=== PATIENT | female | born 1955 | race Caucasian/White ===

== ENCOUNTER 2021-10-15 07:01 | Inpatient (IN) ==
[2021-10-11 19:50] LABS: Appearance,Urine CLEAR (Clear); Bilirubin,Urine Negative (Negative); Color,Urine STRAW; Culture Indicated,Urine No; Glucose,Urine (UA) Negative (Negative); Ketones,Urine Negative (Negative); Leukocyte Esterase,Urine Negative /uL (Negative); Nitrate,Urine Negative (Negative); Protein,Urine Negative (Negative); Specific Gravity,Urine 1.008 (1.000-1.035); Urine Blood Negative (Negative); Urobilinogen,Urine Negative
[2021-10-11 21:56] LABS: ALT/SGPT 10 U/L (<40); AST/SGOT 31 U/L (<32); Albumin 4.2 gm/dL (3.2-5.2); Albumin/Globulin Ratio 1.2 (1.0-2.3); Alkaline Phosphatase 119 U/L (39-117); Bilirubin,Total 0.4 mg/dL (0.1-1.0); Blood Urea Nitrogen 7 mg/dL (8-23); Calcium 9.3 mg/dL (8.6-10.4); Carbon Dioxide 24 mmol/L (22-30); Chloride 101 mmol/L (96-108); Globulin 3.6 gm/dL (2.2-3.7); Glomerular Filtration Rate 102; Glucose 88 mg/dL (70-105)
[2021-10-11 22:08] LABS: Basophils # (Auto) 0.06 K/mcL (0.00-0.30); Basophils % (Auto) 1.1 % (0.0-2.0); Eosinophils % (Auto) 7.2 % (0.0-7.0); Hematocrit 31.4 % (34.1-44.9); Hemoglobin 9.6 g/dL (11.2-15.7); Lymphocytes # (Auto) 1.69 K/mcL (1.50-4.80); Lymphocytes % (Auto) 30.2 % (15.5-49.0); Mean Cell Volume 81.3 fL (80.0-100.0); Mean Corpuscular HGB Conc 30.6 g/dL (31.0-36.0); Mean Platelet Volume 10.2 fL (7.4-10.4); Monocytes # (Auto) 0.53 K/mcL (0.10-0.90); Monocytes % (Auto) 9.5 % (1.0-12.0); Platelet Count 196 K/mcL (140-440); RBC 3.86 M/mcL (3.59-5.38); Red Cell Distribution Width 17.9 % (11.5-14.5); WBC 5.6 K/mcL (4.5-11.0)
[2021-10-11 22:28] LABS: Estimated Average Glucose(eAG) 111 mg/dL; Hemoglobin A1C 5.5 % Hgb (4.0-6.0)
[~2021-10-15 07:01] MED LIST: 0.9 % SODIUM CHLORIDE 9 ML, KETOROLAC 30 MG, ROPIVACAINE HCL/PF 49.5 ML, EPINEPHrine 0.... IJ SCH; CELECOXIB 200 MG CAPSULE PO SCH; PREGABALIN 75 MG CAPSULE PO SCH; ceFAZolin 2 GM in DEXTROSE 5% IN WATER 50 ML IV SCH; oxyCODONE 10 MG TAB.ER.12H PO SCH
[2021-10-15] MEDS ORDERED: LIDOCAINE HCL/PF 100 MG/5 ML SYRINGE IV ONE (09:30)
[2021-10-15] MEDS ORDERED: VASOPRESSIN 20 UNIT/ML VIAL ONE (09:30)
[2021-10-15] MEDS ORDERED: TRANEXAMIC ACID 1,000 MG/10 ML VIAL ONE (09:30)
[2021-10-15] MEDS ORDERED: PROPOFOL 200 MG/20 ML VIAL IV ONE (09:30)
[2021-10-15] MEDS ORDERED: MIDAZOLAM 2 MG/2 ML VIAL ONE (09:30)
[2021-10-15] MEDS ORDERED: ONDANSETRON 4 MG/2 ML VIAL ONE (09:30)
[2021-10-15] MEDS ORDERED: KETAMINE 50 MG/ML Syringe (ANEST) IV ONE (09:30)
[2021-10-15] MEDS ORDERED: DEXAMETHASONE 10 MG/ML VIAL ONE (09:30)
[2021-10-15] MEDS ORDERED: PHENYLephrine 1 MG/10 ML SYRINGE (ANEST) ONE (09:30)
[2021-10-15] MEDS ORDERED: ePHEDrine 50 MG/5 ML SYRINGE (ANEST) IV ONE (09:30)
[2021-10-15] MEDS ORDERED: ROPIVACAINE HCL/PF 20 ML VIAL IJ ONE (09:30)
[2021-10-15] MEDS ORDERED: GLYCOPYRROLATE 0.2 MG/ML VIAL IV ONE (09:30)
--- NOTE | 2021-10-15 09:37 | EKG ---
[facility] Test Date: 2021-10-11 Pat Name: Terrie Mcdaniel Department: CLAUDE Room: Gender: Female Residential Sales Rep: : [id number] Requested By: Jules Cruz Order Number: [id number] Reading MD: Zev Nash M.D. Measurements Intervals [place] Rate: 73 P: 46 WV: 180 QRS: -17 QRSD: 96 T: 41 QT: 396 QTc: 437 Interpretive Statements SINUS RHYTHM BORDERLINE LEFT AXIS DEVIATION BORDERLINE T ABNORMALITIES, ANTERIOR LEADS Electronically Signed On 10-15-2021 9:35:30 PST by Zev Nash M.D. /[email or web address]/[id number]
--- NOTE | 2021-10-15 11:57 | Brief Operative Note ---
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
[2021-10-15] MEDS ORDERED: MAGNESIUM HYDROXIDE 30 ML ORAL.SUSP PO PRN (11:58)
[2021-10-15] MEDS ORDERED: TRANEXAMIC ACID 1,000 MG/10 ML VIAL IV ONE (11:58)
[2021-10-15] MEDS ORDERED: HYDROmorphone 1 MG/ML SYRINGE IV PRN (11:58)
[2021-10-15] MEDS ORDERED: BENZOCAINE/MENTHOL 1 LOZENGE PO PRN ×2 (11:58→12:34)
[2021-10-15] MEDS ORDERED: BISACODYL 10 MG SUPP.RECT PR PRN (11:58)
[2021-10-15] MEDS ORDERED: FLEETS ADULT ENEMA PR PRN (11:58)
[2021-10-15] MEDS ORDERED: DEXTROSE 31 GM ORAL.SUSP PO PRN (11:58)
[2021-10-15] MEDS ORDERED: ONDANSETRON 4 MG/2 ML VIAL IV PRN ×2 (11:58→12:34)
[2021-10-15] MEDS ORDERED: DEXTROSE 50% 50 ML VIAL IV PRN (11:58)
[2021-10-15] MEDS ORDERED: HYDROmorphone 0.5 MG/0.5 ML SYRINGE IV PRN (12:34)
[2021-10-15] MEDS ORDERED: IPRATROPIUM/ALBUTEROL 3 ML AMPUL.NEB NEB PRN (12:34)
[2021-10-15] MEDS ORDERED: FLUMAZENIL 0.1 MG/ML ML IV PRN (12:34)
[2021-10-15] MEDS ORDERED: ACETAMINOPHEN 1,000 MG/100 ML BAG IV ONE (12:34)
[2021-10-15] MEDS ORDERED: fentaNYL 100 MCG/2 ML VIAL IV PRN (12:34)
[2021-10-15] MEDS ORDERED: LABETALOL 5 MG/ML ML IV PRN (12:34)
[2021-10-15] MEDS ORDERED: METHOCARBAMOL 1,000 MG/10 ML VIAL IV PRN (12:34)
[2021-10-15] MEDS ORDERED: LACTATED RINGERS 250 ML IV PRN (12:34)
[2021-10-15] MEDS ORDERED: NALOXONE HCL 0.4 MG/ML VIAL IV PRN (12:34)
[2021-10-15] MEDS ORDERED: METOPROLOL TARTRATE 5 MG/5 ML VIAL IV PRN (12:34)
[2021-10-15] MEDS ORDERED: LACTATED RINGERS 1,000 ML IV SCH (12:45)
--- NOTE | 2021-10-15 12:57 | Operative Note ---
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 PROCEDURE PERFORMED: 1. Revision total knee arthroplasty with placement of a Maddy Triathlon total stabilized size 2 femoral component with a 100 x 13 mm stem with a size 3 tibial baseplate and an 11 x 100 stem; a 13 total stabilized insert, and a 31 mm patellar button. 2. Removal of previous cement articulating spacer. SURGEON: Willy Galindo M.D. SOLUTION SPEC: Jeronimo Howard PA-C. The PA's assistance was required for the safe and efficient completion of the entire case. This provider's expertise and technical skill were required throughout the case. The PA assisted with preoperative coordination, intraoperative retraction, wound closure, dressing and splint application, as well as postoperative documentation and care coordination. ANESTHESIA: Spinal plus general plus regional block. DRAINS: None. SPECIMENS: Culture and sensitivity x2, as well as removed cement spacer components. ESTIMATED BLOOD LOSS: 100 mL. COMPLICATIONS: None. POSTOPERATIVE CONDITION: Stable. INDICATIONS FOR SURGERY: This is a 66-year-old female who had undergone a right total knee arthroplasty. 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 She underwent 6 weeks of IV antibiotics. Fluid aspiration and culture was done after completion of the antibiotics, which showed no bacteria, so she was ready for reimplantation. FINDINGS AT SURGERY: There was no evidence of active infection. Post implantation showed satisfactory range of motion, stability, and patellar tracking. PROCEDURE IN DETAIL: The patient had been seen preoperatively. Informed consent had been obtained after discussion of risks and benefits of surgery. Risks including, but not limited to, bleeding; infection, possibly requiring a repeat of this latest process, possibly ultimately ending in an above-knee amputation; injury to nerves, blood vessels, other surrounding structures; anesthetic risks; stiffness; swelling; pain; possibility of needing further surgeries. She understood and wished to proceed. The correct operative site was marked in preoperative holding, and she received spinal anesthesia. She was then taken to the operating room and LMA general was given. The right lower extremity was then carefully prepped and draped in normal sterile fashion. A timeout was performed verifying patient name, operative site, and plan. Ioban drape was used and then a midline incision was made through her previous incision through skin and subcutaneous tissue. Hemostasis was obtained with Bovie cautery. We then developed full-thickness flaps sharply with the scalpel. She had quite significant scarring. We then did a medial parapatellar arthrotomy with a scalpel, and there was very minimal joint fluid. We went ahead and cultured this x2 and sent it off. I continued with anterior medial exposure of the proximal tibia and then removed some scar tissue from behind the patellar tendon to aid our exposure. We then used a flexible osteotome to work the edges of the femoral component until this was loose and then a fishmouth was used to disimpact. We then exposed the proximal tibia and similarly used the osteotome around the polyethylene, tibial component, and then used a fishmouth to disimpact. We then spent quite a bit of time carefully removing cement with osteotome and curette until we had removed cement. We then started on the tibial side. We did irrigate IrriSept after our initial exposure down onto the extensor mechanism and then once we entered the joint. We started reaming down the canal to a size 11 and then based off her prior size of a 3, we did require some offset to fit the tibia appropriately. We then did our boss reaming and the keel punch. We then placed our tibial trial with the 100 stem. We then used the femoral trial and ended up needing a distal femoral augment on the lateral side, so we did a freshening cut on that side. Prior to placement of this trial, we did ream up the femoral canal to a size 13, and then with this stem trial on the component, we determined that we wanted 2 mm of posterior offset. We trialed this with an 11. This was not quite enough tension, so we went up to a size 13 insert trial, and this seemed to give good stability with full extension. We then turned our attention to the patella. We went ahead and made a freshening cut off of the patella and then used a 31 sizer and medialized maximally and drilled new holes. We then placed the patellar trial. A limited lateral facetectomy was performed. We then checked our tracking. Due to the scarring around the patella, we did have some patellar tilt, so I went ahead and did a partial lateral release, starting from the tibia and going up to just the superior margin of the patella, about a centimeter lateral to the patella. This did seem to allow the patella to lay down better, so we went ahead and removed trial implants. Definitive implants were opened and assembled on the back table. A 50% dilute Betadine solution was used to fill the joint. This was left for 5 minutes. After that, we pulse lavaged copiously with saline, and placed with IrriSept. Once components had been assembled on the back table, we then mixed antibiotic Palacos and pulse lavaged the knee copiously with saline. We cemented the tibia, placing no cement around the stem. I then similarly prepared the femur with pulse lavage, and then cementing the femoral component. A 13 trial insert was placed, and the knee was taken into extension. Excess cement removed and then the patellar button was cemented. While cement hardened, we kept the knee absolutely still in full extension. We injected pain cocktail in the pericapsular and subcutaneous tissues. The joint was filled with IrriSept again. Once cement had fully hardened, we pulse lavaged the IrriSept out, flexed the knee up, and removed the trial insert. I went ahead and opened a 13 definitive insert. Final inspection was done for any loose cement fragments and then IrriSept was irrigated onto the tray. We then impacted the total stabilized insert into position and then impacted the metal support post down the top. The knee was then placed in extension and again we filled the joint with IrriSept. After a minute, we then pulse lavaged copiously with saline. We then flexed the knee to about 45 degrees. Two [id number] #2 FiberWire stitches were placed at the superior apex of the patella and then one [id number] at the inferior. We then used Stratafix suture running from the quad tendon down and around the patella, and then a second one was run the patellar tendon up and around the patella. At this point, tourniquet was released at 2 hours. We irrigated a final IrriSept, after a minute final pulse lavage, and then 2-0 Monocryl was used for subcutaneous, silvestre for skin. Xeroform and sterile dressing were applied without any adhesives. The patient was then awakened, extubated, and transferred to recovery in stable condition. JAGJIT:marcel Job ID: [id number] Doc ID: [id number] Willy Galindo MD
[2021-10-15] MEDS: 0.9 % SODIUM CHLORIDE 1,000 ML IV SCH ×2 (13:53→22:27)
--- NOTE | 2021-10-15 13:57 | XRay Report ---
CLINICAL INFORMATION: Post-op total knee. COMPARISON: None. FINDINGS: Long stem knee prostheses is anatomically aligned. No osseous abnormalities. Periarticular soft tissue swelling seen as expected. IMPRESSION: Knee prostheses in anatomic alignment Interpreted and Authenticated by: Zev Melendez 10/15/21
[2021-10-15] MEDS: 0.9 % SODIUM CHLORIDE 10 ML SYRINGE IV SCH ×2 (14:35→20:29)
[2021-10-15] MEDS: ceFAZolin 1 GM VIAL IV SCH (17:03)
[2021-10-15] MEDS: metFORMIN 500 MG TAB.XL.24H PO SCH (17:03)
[2021-10-15] MEDS: INSULIN LISPRO 1 UNIT/0.01 ML UNIT SQ SCH ×2 (17:19→22:25)
[2021-10-15] MEDS: ATORVASTATIN 20 MG TABLET PO SCH (20:28)
[2021-10-15] MEDS: SENNOSIDES 1 TABLET PO SCH (20:28)
[2021-10-15] MEDS: FUROSEMIDE 20 MG TABLET PO SCH (20:28)
[2021-10-15] MEDS: DOCUSATE SODIUM 100 MG CAPSULE PO SCH (20:28)
[2021-10-15] MEDS: ASPIRIN 81 MG TAB.CHEW PO SCH (20:28)
[2021-10-15] MEDS: AMITRIPTYLINE 25 MG TABLET PO SCH (20:28)
[2021-10-16] MEDS: ceFAZolin 1 GM VIAL IV SCH (00:35)
[2021-10-16] MEDS: 0.9 % SODIUM CHLORIDE 10 ML SYRINGE IV SCH ×3 (05:29→20:28)
--- NOTE | 2021-10-16 07:04 | Orthopedic Progress Note ---
SUBJECTIVE Subjective Patient information: Note initiated : 10/16/21 at 7:01 am Service Date, if different from initiated Date: [] Patient: Terrie Mcdaniel 66 y/o F admitted on 10/15/21 for Rt Total Knee Arthroplasty Revision. Chief Complaint: [] Principal diagnosis: Right total knee arthroplasty revision Interval history: Patient is postop day 1 from right total knee arthroplasty revision. She is resting comfortably in bed and complains of some pain in the knee and has had some drainage but is otherwise doing well. She denies any chest pain, shortness of breath, headache, or any other acute symptoms. Constitutional Vitals: Vital Signs Temp Pulse Resp BP Pulse Ox 97.3 F 85 16 114/79 97 10/16/21 04:29 10/16/21 04:29 10/16/21 04:29 10/16/21 04:29 10/16/21 04:29 Period Temp Pulse Resp BP Sys/Amaya Pulse Ox Last 24 Hr 96.8 F-98.2 F 69-98 9-19 97-135/60-88 95-100 Intake and Output 10/15/21 10/16/21 10/16/21 21:59 05:59 13:59 Intake Total 400 1400 Output Total 3125 925 Balance -2725 475 Weight 173 lb 3.2 oz Intake & Output: Intake & Output 10/15/21 10/16/21 10/16/21 21:59 05:59 13:59 Intake Total 400 1400 Output Total 3125 925 Balance -2725 475 Weight 173 lb 3.2 oz Intake: IV 100 1000 Sodium Chloride 0.9% 1,000 ml @ 1000 100 mls/hr IV .Q10H [facility] Rx#: [id number] Oral 300 400 Output: Void Amount 3125 925 Other: Urine Appearance Clear Clear Urine Color Bright Yellow Bright Yellow Urine Odor Foul Exam: Exam of the right lower extremity reveals dressings in place and dry. Patient is neurovascular intact in the entire right lower extremity. No calf tenderness bilaterally. OBJ DATA Labs CBC & Chem 7: 10/11/21 15:02 10/11/21 15:02 Meds: Medications Amitriptyline HCl (Amitriptyline 25 Mg Tablet) 50 mg PO [facility] Last Admin: 10/15/21 20:28 Dose: 50 mg Documented by: Aspirin (Aspirin 81 Mg Tab.Chew) 81 mg PO BID [facility] Last Admin: 10/15/21 20:28 Dose: 81 mg Documented by: Atorvastatin Calcium (Atorvastatin 20 Mg Tablet) 20 mg PO HS [facility] Last Admin: 10/15/21 20:28 Dose: 20 mg Documented by: Bisacodyl (Bisacodyl 10 Mg Supp.Rect) 10 mg [place] Q2-3DAYS PRN PRN Reason: Constipation Dextrose (Dextrose 50% 50 Ml Vial) 0 ml IV UD PRN PRN Reason: Hypoglycemia Diagnostic Test (Pha) (Accu-Chek 1 Each Strip) 1 each FS TIDAC [facility] Last Admin: 10/15/21 17:05 Dose: 1 each Documented by: Docusate Sodium (Docusate Sodium 100 Mg Capsule) 100 mg PO BID [facility] Last Admin: 10/15/21 20:28 Dose: 100 mg Documented by: Furosemide (Furosemide 20 Mg Tablet) 20 mg PO HS [facility] Last Admin: 10/15/21 20:28 Dose: 20 mg Documented by: Glucose (Dextrose 31 Gm Oral.Susp) 15 gm PO PRN PRN PRN Reason: Hypoglycemia Hydromorphone HCl (Hydromorphone 1 Mg/Ml Syringe) 0.5 - 2 mg IV Q2HP PRN; Protocol PRN Reason: Per Pain Protocol Sodium Chloride (Sodium Chloride 0.9%) 1,000 mls @ 100 mls/hr IV .Q10H [facility] Last Infusion: 10/16/21 00:36 Dose: Infused Documented by: Insulin Human Lispro (Insulin Lispro 1 Unit/0.01 Ml Unit) 0 unit SQ ACHS [facility]; Protocol Last Admin: 10/15/21 22:25 Dose: Not Given Documented by: Magnesium Hydroxide (Magnesium Hydroxide 30 Ml Oral.Susp) 30 ml PO BIDP PRN PRN Reason: Constipation Metformin HCl (Metformin 500 Mg Tab.Xl.24h) 1,000 mg PO BIDCC [facility] Last Admin: 10/15/21 17:03 Dose: 1,000 mg Documented by: Nadolol (Nadolol 20 Mg Tablet) 20 mg PO DAILY [facility] Ondansetron HCl (Ondansetron 4 Mg/2 Ml Vial) 4 mg IV Q4HP PRN; Protocol PRN Reason: Nausea And Vomiting Oxycodone/Acetaminophen (Oxycodone/Apap 5/325mg Tablet) 1 - 2 tab PO Q4HP PRN; Protocol PRN Reason: Per Pain Protocol Pantoprazole Sodium (Pantoprazole 40 Mg Tablet) 40 mg PO QAMAC [facility] Fiber Tablet, (Chewable) 2 dose PO DAILY [facility] Milk Thistle Seed Extract 1000 Mg Capsule 1 dose PO DAILY [facility] Polyethylene Glycol (Polyethylene Glycol 3350 17 Gm Packet) 17 gm PO DAILYP PRN PRN Reason: Constipation Senna (Sennosides 1 Tablet) 2 tab PO HS [facility] Last Admin: 10/15/21 20:28 Dose: 2 tab Documented by: Sodium Biphosphate/Sodium Phosphate (Fleets Adult Enema) 1 dose [place] Q3-4DAYS PRN PRN Reason: Constipation Sodium Chloride (0.9 % Sodium Chloride 10 Ml Syringe) 10 ml IV Q8 [facility] Last Admin: 10/16/21 05:29 Dose: 10 ml Documented by: Spironolactone (Spironolactone 25 Mg Tablet) 50 mg PO DAILY [facility] Throat Lozenges (Benzocaine/Menthol 1 Lozenge) 1 lozenge PO PRN PRN PRN Reason: Sore Throat Venlafaxine HCl (Venlafaxine 150 Mg Cap.Xl.24h) 150 mg PO QDAY [facility] Venlafaxine HCl (Venlafaxine 75 Mg Tablet) 37.5 mg PO QDAY [facility] A/P Narrative A/P Narrative: Postop day 1 status post right total knee arthroplasty Plan: Patient will remain in the hospital for postoperative pain control and physical therapy. She will likely require a detention facility as she has no one at home to help with her recovery and she is a fall risk. We will continue DVT prophylaxis with aspirin. We should try to keep her leg in full extension most of the time. I will see the patient tomorrow for recheck. Begin planning with case management/social work for detention facility placement likely on Monday. Time Spent With Patient Time: Total time spent is greater than 50% in coordination of care (as documented) at patient's floor/unit and/or counseling patient:
[2021-10-16] MEDS: INSULIN LISPRO 1 UNIT/0.01 ML UNIT SQ SCH ×4 (07:19→20:27)
[2021-10-16] MEDS: oxyCODONE/APAP 5/325MG TABLET PO PRN ×3 (07:28→20:20)
[2021-10-16] MEDS: PANTOPRAZOLE 40 MG TABLET PO SCH (07:29)
[2021-10-16] MEDS: metFORMIN 500 MG TAB.XL.24H PO SCH ×2 (07:29→17:07)
[2021-10-16] MEDS: 0.9 % SODIUM CHLORIDE 1,000 ML IV SCH (07:38)
[2021-10-16] MEDS: ASPIRIN 81 MG TAB.CHEW PO SCH ×2 (08:32→20:16)
[2021-10-16] MEDS: DOCUSATE SODIUM 100 MG CAPSULE PO SCH ×2 (08:32→20:16)
[2021-10-16] MEDS: NADOLOL 20 MG TABLET PO SCH (08:32)
[2021-10-16] MEDS: SPIRONOLACTONE 25 MG TABLET PO SCH (08:32)
[2021-10-16] MEDS: VENLAFAXINE 75 MG TABLET PO SCH (08:32)
[2021-10-16] MEDS: VENLAFAXINE 150 MG CAP.XL.24H PO SCH (08:32)
[2021-10-16] MEDS: FIBER PO SCH (09:40)
[2021-10-16] MEDS: MILK THISTLE SEED EXTRACT PO SCH (09:41)
[2021-10-16] MEDS: POLYETHYLENE GLYCOL 3350 17 GM PACKET PO PRN (17:57)
[2021-10-16] MEDS: AMITRIPTYLINE 25 MG TABLET PO SCH (20:16)
[2021-10-16] MEDS: SENNOSIDES 1 TABLET PO SCH (20:16)
[2021-10-16] MEDS: ATORVASTATIN 20 MG TABLET PO SCH (20:17)
[2021-10-16] MEDS: FUROSEMIDE 20 MG TABLET PO SCH (20:17)
[2021-10-17] MEDS: 0.9 % SODIUM CHLORIDE 10 ML SYRINGE IV SCH ×3 (04:30→21:33)
[2021-10-17] MEDS: INSULIN LISPRO 1 UNIT/0.01 ML UNIT SQ SCH ×4 (07:21→21:32)
[2021-10-17] MEDS: metFORMIN 500 MG TAB.XL.24H PO SCH ×2 (07:41→16:36)
[2021-10-17] MEDS: PANTOPRAZOLE 40 MG TABLET PO SCH (07:41)
--- NOTE | 2021-10-17 07:49 | Orthopedic Progress Note ---
SUBJECTIVE Subjective Patient information: Note initiated : 10/17/21 at 7:46 am Service Date, if different from initiated Date: [] Patient: Terrie Mcdaniel 66 y/o F admitted on 10/15/21 for Rt Total Knee Arthroplasty Revision. Chief Complaint: [] Principal diagnosis: Right total knee arthroplasty revision Interval history: Postop day 2 status post right total knee arthroplasty revision. Patient is doing well and is participating in physical therapy. She has had some drainage but is otherwise not complaining of any other acute symptoms. She is working on ice and elevation hand has been working with physical therapy on strengthening and range of motion. She has talked to a case management manager for longterm facil ity placement and they are working on the matter. She denies any chest pain, headache, shortness of breath, or any other acute symptoms. Constitutional Vitals: Vital Signs Temp Pulse Resp BP Pulse Ox 97.6 F 80 16 104/66 98 10/17/21 07:16 10/17/21 07:16 10/17/21 07:16 10/17/21 07:16 10/17/21 07:16 Period Temp Pulse Resp BP Sys/Amaya Pulse Ox Last 24 Hr 96.7 F-97.6 F 73-85 16-18 104-123/56-80 95-99 Intake and Output 10/16/21 10/17/21 10/17/21 21:59 05:59 13:59 Intake Total 200 600 Output Total 700 2500 600 Balance -500 -1900 -600 Weight 178 lb Intake & Output: Intake & Output 10/16/21 10/17/21 10/17/21 21:59 05:59 13:59 Intake Total 200 600 Output Total 700 2500 600 Balance -500 -1900 -600 Weight 178 lb Intake: Oral 200 600 Output: Void Amount 700 2500 600 Other: Meal Dinner Percent of Meal Consumed 100% Urine Appearance Clear Clear Urine Color Bright Yellow Pale Bright Yellow # Voids 1 Exam: Exam of the right lower extremity reveals dressings in place. She is neurovascular intact in the entire right lower extremity. No calf tenderness in bilateral lower extremities. She is able to ambulate with an antalgic gait with the assistance of a walker. Range of motion is from about 5 degrees in extension to about 90 degrees in flexion. OBJ DATA Labs CBC & Chem 7: 10/11/21 15:02 10/11/21 15:02 Meds: Medications Amitriptyline HCl (Amitriptyline 25 Mg Tablet) 50 mg PO [facility] Last Admin: 10/16/21 20:16 Dose: 50 mg Documented by: Aspirin (Aspirin 81 Mg Tab.Chew) 81 mg PO BID [facility] Last Admin: 10/16/21 20:16 Dose: 81 mg Documented by: Atorvastatin Calcium (Atorvastatin 20 Mg Tablet) 20 mg PO [facility] Last Admin: 10/16/21 20:17 Dose: 20 mg Documented by: Bisacodyl (Bisacodyl 10 Mg Supp.Rect) 10 mg [place] Q2-3DAYS PRN PRN Reason: Constipation Dextrose (Dextrose 50% 50 Ml Vial) 0 ml IV UD PRN PRN Reason: Hypoglycemia Diagnostic Test (Pha) (Accu-Chek 1 Each Strip) 1 each FS TIDAC [facility] Last Admin: 10/17/21 07:20 Dose: 1 each Documented by: Docusate Sodium (Docusate Sodium 100 Mg Capsule) 100 mg PO BID [facility] Last Admin: 10/16/21 20:16 Dose: 100 mg Documented by: Furosemide (Furosemide 20 Mg Tablet) 20 mg PO [facility] Last Admin: 10/16/21 20:17 Dose: 20 mg Documented by: Glucose (Dextrose 31 Gm Oral.Susp) 15 gm PO PRN PRN PRN Reason: Hypoglycemia Hydromorphone HCl (Hydromorphone 1 Mg/Ml Syringe) 0.5 - 2 mg IV Q2HP PRN; Protocol PRN Reason: Per Pain Protocol Insulin Human Lispro (Insulin Lispro 1 Unit/0.01 Ml Unit) 0 unit SQ [facility]; Protocol Last Admin: 10/17/21 07:21 Dose: Not Given Documented by: Magnesium Hydroxide (Magnesium Hydroxide 30 Ml Oral.Susp) 30 ml PO BIDP PRN PRN Reason: Constipation Metformin HCl (Metformin 500 Mg Tab.Xl.24h) 1,000 mg PO BIDCC [facility] Last Admin: 10/17/21 07:41 Dose: 1,000 mg Documented by: Nadolol (Nadolol 20 Mg Tablet) 20 mg PO DAILY [facility] Last Admin: 10/16/21 08:32 Dose: 20 mg Documented by: Ondansetron HCl (Ondansetron 4 Mg/2 Ml Vial) 4 mg IV Q4HP PRN; Protocol PRN Reason: Nausea And Vomiting Oxycodone/Acetaminophen (Oxycodone/Apap 5/325mg Tablet) 1 - 2 tab PO Q4HP PRN; Protocol PRN Reason: Per Pain Protocol Last Admin: 10/16/21 20:20 Dose: 1 tab Documented by: Pantoprazole Sodium (Pantoprazole 40 Mg Tablet) 40 mg PO QAMAC [facility] Last Admin: 10/17/21 07:41 Dose: 40 mg Documented by: Fiber Tablet, (Chewable) 2 dose PO DAILY [facility] Last Admin: 10/16/21 09:40 Dose: Not Given Documented by: Milk Thistle Seed Extract 1000 Mg Capsule 1 dose PO DAILY [facility] Last Admin: 10/16/21 09:41 Dose: Not Given Documented by: Polyethylene Glycol (Polyethylene Glycol 3350 17 Gm Packet) 17 gm PO DAILYP PRN PRN Reason: Constipation Last Admin: 10/16/21 17:57 Dose: 17 gm Documented by: Senna (Sennosides 1 Tablet) 2 tab PO HS [facility] Last Admin: 10/16/21 20:16 Dose: 2 tab Documented by: Sodium Biphosphate/Sodium Phosphate (Fleets Adult Enema) 1 dose [place] Q3-4DAYS PRN PRN Reason: Constipation Sodium Chloride (0.9 % Sodium Chloride 10 Ml Syringe) 10 ml IV Q8 [facility] Last Admin: 10/17/21 04:30 Dose: 10 ml Documented by: Spironolactone (Spironolactone 25 Mg Tablet) 50 mg PO DAILY [facility] Last Admin: 10/16/21 08:32 Dose: 50 mg Documented by: Throat Lozenges (Benzocaine/Menthol 1 Lozenge) 1 lozenge PO PRN PRN PRN Reason: Sore Throat Venlafaxine HCl (Venlafaxine 150 Mg Cap.Xl.24h) 150 mg PO QDAY [facility] Last Admin: 10/16/21 08:32 Dose: 150 mg Documented by: Venlafaxine HCl (Venlafaxine 75 Mg Tablet) 37.5 mg PO QDAY [facility] Last Admin: 10/16/21 08:32 Dose: 37.5 mg Documented by: A/P Assessment and plan (1) Status post revision of total replacement of right knee: Assessment and plan: Plan: Continue work with case management to find placement for longterm facility. I feel that she is a candidate for a longterm facility as she has no one at home to help with her difficult recovery and she is unsteady in her gait and is a fall risk and does not have help with transportation to attend physical therapy. Dr. Galindo will see the patient tomorrow for orders. In the meantime continue physical therapy and postoperative pain control protocol. Status: Acute Time Spent With Patient Time: Total time spent is greater than 50% in coordination of care (as documented) at patient's floor/unit and/or counseling patient:
[2021-10-17] MEDS: VENLAFAXINE 75 MG TABLET PO SCH (08:23)
[2021-10-17] MEDS: POLYETHYLENE GLYCOL 3350 17 GM PACKET PO PRN (08:23)
[2021-10-17] MEDS: ASPIRIN 81 MG TAB.CHEW PO SCH ×2 (08:23→21:31)
[2021-10-17] MEDS: VENLAFAXINE 150 MG CAP.XL.24H PO SCH (08:23)
[2021-10-17] MEDS: DOCUSATE SODIUM 100 MG CAPSULE PO SCH ×2 (08:23→21:31)
[2021-10-17] MEDS: SPIRONOLACTONE 25 MG TABLET PO SCH (08:24)
[2021-10-17] MEDS: oxyCODONE/APAP 5/325MG TABLET PO PRN ×2 (08:24→21:33)
[2021-10-17] MEDS: NADOLOL 20 MG TABLET PO SCH (08:24)
[2021-10-17] MEDS: MILK THISTLE SEED EXTRACT PO SCH (08:25)
[2021-10-17] MEDS: FIBER PO SCH (08:25)
[2021-10-17] MEDS ORDERED: MAG HYDROX/AL HYDROX/SIMETH 30 ML ORAL.SUSP PO PRN (18:18)
--- NOTE | 2021-10-17 19:38 | Discharge Summary ---
Discharge Provider Provider Patient information: Note initiated : 10/17/21 at 7:32 pm Service Date, if different from initiated Date: [] Patient: Terrie Mcdaniel 66 y/o F admitted on 10/15/21 for Rt Total Knee Arthroplasty Revision. Chief Complaint: [] Date of admission: 10/15/21 11:59 Discharge date: 10/18/21 Primary care physician: Carito Mckeon DO Admitting clinician: Willy Galindo Attending physician on admission: Willy Galindo COURSE Hospital Course Hospital course: Patient was admitted posteoperatively. Pain was controlled with IV then transitioned to oral only meds. Patient was worked with physical therapy and it was determined since she lives alone and assistance required that she should be d/c'd to a SNF or swing bed. Discharge diagnosis: s/p reimplantation revision total knee arthroplasty Secondary discharge diagnosis: Diabetes Mellitus HTN GERD depression Reason for admission: patient underwent a revision total knee arthroplasty for reimplantation Procedures: Revision total knee arthroplasty and cement spacer removal Complications: None Time Spent with Patient Time attestation: Total time spent providing and/or coordinating discharge services: Physical Examination Exam Clean and dry: Yes Weight bearing status: as tolerated Discharge Instructions - TKA Patient Instructions Total Knee Protocol: For Total Knee: Start ROM AGA with stationary bike or rocking chair. Work on gaining full extension of knee. Posterior dislocation precautions provided. Hip abductor strengthening and gait training instructions provided. Apply Cryocuff as instructed. Dressing Care: Cover dressing in shower and Silvasorb gel & gauze - change daily Additional Dressing Instructions: NO ADHESIVES ON SKIN Discharge Plan Patient/Caregiver Discharge Instructions Activity: increase activity as tolerated Diet: Consistent Carbohydrate Prescriptions: New aspirin 81 mg Tablet,Delayed Release (Dr/Ec) 81 mg PO BID 30 Days Qty: 60 0RF oxycodone-acetaminophen 5-325 mg Tablet 1 - 2 tab PO Q4H PRN (Reason: Pain) Qty: 60 0RF No Action atorvastatin 20 MG tablet 20 mg PO HS 0RF amitriptyline 25 MG tablet 50 mg PO HS 0RF nadolol 40 MG tablet 20 mg PO DAILY 0RF spironolactone 50 MG tablet 50 mg PO DAILY 0RF metformin 1,000 MG tablet extended release 24hr 1,000 mg PO BIDCC 0RF milk thistle seed extract 175 MG capsule 1,000 mg PO DAILY 0RF pantoprazole [Protonix] 40 mg Tablet,Delayed Release (Dr/Ec) 40 mg PO QAMAC 0RF fiber Tablet,Chewable 2 tab PO DAILY 0RF venlafaxine [Effexor XR] 150 mg Capsule,Extended Release 24hr 150 mg PO QDAY 0RF venlafaxine [Effexor] 37.5 mg Tablet 37.5 mg PO QDAY 0RF furosemide 20 mg Tablet 20 mg PO HS 0RF ibuprofen 400 mg Tablet 400 mg PO Q6H PRN (Reason: Pain) 0RF Other Ambulatory Orders: Physical Therapy DC - TKA (Routine) Location: None Selected Ordered By: Willy Galindo Follow Up Plan Follow up with: Willy Galindo MD [Physician] - 10/28/21 10:50 am Patient Disposition: Xfer SNF Rehab Potential: Fair I certify that the patient requires SNF services: Yes Discharge Orders: Discharge Order (Routine); Ordered 10/18/21 Ordered By: Willy Galindo Pending Pending Pending: Resuscitation Status Resuscitate (Full Code) Diet Consistent Carbohydrate Diet Start MonOct 15 1200 Amitriptyline HCl (Amitriptyline 25 Mg Tablet) 50 mg PO [facility] Last Admin: 10/16/21 20:16 Dose: 50 mg Documented by: Admin: 10/15/21 20:28 Dose: 50 mg Documented by: AMY Aspirin (Aspirin 81 Mg Tab.Chew) 81 mg PO BID [facility] Last Admin: 10/17/21 08:23 Dose: 81 mg Documented by: Admin: 10/16/21 20:16 Dose: 81 mg Documented by: Admin: 10/16/21 08:32 Dose: 81 mg Documented by: Admin: 10/15/21 20:28 Dose: 81 mg Documented by: AMY Atorvastatin Calcium (Atorvastatin 20 Mg Tablet) 20 mg PO HS [facility] Last Admin: 10/16/21 20:17 Dose: 20 mg Documented by: Admin: 10/15/21 20:28 Dose: 20 mg Documented by: AMY Diagnostic Test (Pha) (Accu-Chek 1 Each Strip) 1 each FS TIDAC [facility] Last Admin: 10/17/21 16:32 Dose: 1 each Documented by: Admin: 10/17/21 11:42 Dose: 1 each Documented by: Admin: 10/17/21 07:20 Dose: 1 each Documented by: Admin: 10/16/21 16:26 Dose: 1 each Documented by: Admin: 10/16/21 11:22 Dose: 1 each Documented by: Admin: 10/16/21 07:18 Dose: 1 each Documented by: Admin: 10/15/21 17:05 Dose: 1 each Documented by: Admin: 10/15/21 13:30 Dose: 1 each Documented by: Admin: 10/15/21 08:00 Dose: 1 each Documented by: CORNEL Docusate Sodium (Docusate Sodium 100 Mg Capsule) 100 mg PO BID [facility] Last Admin: 10/17/21 08:23 Dose: 100 mg Documented by: Admin: 10/16/21 20:16 Dose: 100 mg Documented by: Admin: 10/16/21 08:32 Dose: 100 mg Documented by: Admin: 10/15/21 20:28 Dose: 100 mg Documented by: AMY Furosemide (Furosemide 20 Mg Tablet) 20 mg PO HS [facility] Last Admin: 10/16/21 20:17 Dose: 20 mg Documented by: Admin: 10/15/21 20:28 Dose: 20 mg Documented by: AMY Insulin Human Lispro (Insulin Lispro 1 Unit/0.01 Ml Unit) 0 unit SQ ACHS [facility]; Protocol Last Admin: 10/17/21 16:33 Dose: Not Given Documented by: Admin: 10/17/21 11:41 Dose: 4 units Documented by: Admin: 10/17/21 07:21 Dose: Not Given Documented by: Admin: 10/16/21 20:27 Dose: Not Given Documented by: Admin: 10/16/21 16:26 Dose: Not Given Documented by: Admin: 10/16/21 11:41 Dose: 2 units Documented by: Admin: 10/16/21 07:19 Dose: Not Given Documented by: Admin: 10/15/21 22:25 Dose: Not Given Documented by: Admin: 10/15/21 17:19 Dose: 6 units Documented by: SARTHAK Metformin HCl (Metformin 500 Mg Tab.Xl.24h) 1,000 mg PO BIDCC [facility] Last Admin: 10/17/21 16:36 Dose: 1,000 mg Documented by: Admin: 10/17/21 07:41 Dose: 1,000 mg Documented by: Admin: 10/16/21 17:07 Dose: 1,000 mg Documented by: Admin: 10/16/21 07:29 Dose: 1,000 mg Documented by: Admin: 10/15/21 17:03 Dose: 1,000 mg Documented by: SARTHAK Nadolol (Nadolol 20 Mg Tablet) 20 mg PO DAILY [facility] Last Admin: 10/17/21 08:24 Dose: 20 mg Documented by: Admin: 10/16/21 08:32 Dose: 20 mg Documented by: SARTHAK Oxycodone/Acetaminophen (Oxycodone/Apap 5/325mg Tablet) 1 - 2 tab PO Q4HP PRN; Protocol PRN Reason: Per Pain Protocol Last Admin: 10/17/21 08:24 Dose: 1 tab Documented by: Admin: 10/16/21 20:20 Dose: 1 tab Documented by: Admin: 10/16/21 13:54 Dose: 1 tab Documented by: Admin: 10/16/21 07:28 Dose: 1 tab Documented by: SARTHAK Pantoprazole Sodium (Pantoprazole 40 Mg Tablet) 40 mg PO QAMAC [facility] Last Admin: 10/17/21 07:41 Dose: 40 mg Documented by: Admin: 10/16/21 07:29 Dose: 40 mg Documented by: SARTHAK Fiber Tablet, (Chewable) 2 dose PO DAILY [facility] Last Admin: 10/17/21 08:25 Dose: Not Given Documented by: Admin: 10/16/21 09:40 Dose: Not Given Documented by: SARTHAK Milk Thistle Seed Extract 1000 Mg Capsule 1 dose PO DAILY [facility] Last Admin: 10/17/21 08:25 Dose: Not Given Documented by: Admin: 10/16/21 09:41 Dose: Not Given Documented by: SARTHAK Polyethylene Glycol (Polyethylene Glycol 3350 17 Gm Packet) 17 gm PO DAILYP PRN PRN Reason: Constipation Last Admin: 10/17/21 08:23 Dose: 17 gm Documented by: Admin: 10/16/21 17:57 Dose: 17 gm Documented by: SARTHAK Senna (Sennosides 1 Tablet) 2 tab PO HS [facility] Last Admin: 10/16/21 20:16 Dose: 2 tab Documented by: Admin: 10/15/21 20:28 Dose: 2 tab Documented by: AMY Sodium Chloride (0.9 % Sodium Chloride 10 Ml Syringe) 10 ml IV Q8 [facility] Last Admin: 10/17/21 13:43 Dose: 10 ml Documented by: Admin: 10/17/21 04:30 Dose: 10 ml Documented by: Admin: 10/16/21 20:28 Dose: 10 ml Documented by: Admin: 10/16/21 13:01 Dose: 10 ml Documented by: Admin: 10/16/21 05:29 Dose: 10 ml Documented by: Admin: 10/15/21 20:29 Dose: 10 ml Documented by: Admin: 10/15/21 14:35 Dose: Not Given Documented by: SARTHAK Spironolactone (Spironolactone 25 Mg Tablet) 50 mg PO DAILY [facility] Last Admin: 10/17/21 08:24 Dose: 50 mg Documented by: Admin: 10/16/21 08:32 Dose: 50 mg Documented by: SARTHAK Venlafaxine HCl (Venlafaxine 150 Mg Cap.Xl.24h) 150 mg PO QDAY [facility] Last Admin: 10/17/21 08:23 Dose: 150 mg Documented by: Admin: 10/16/21 08:32 Dose: 150 mg Documented by: SARTHAK Venlafaxine HCl (Venlafaxine 75 Mg Tablet) 37.5 mg PO QDAY [facility] Last Admin: 10/17/21 08:23 Dose: 37.5 mg Documented by: Admin: 10/16/21 08:32 Dose: 37.5 mg Documented by: SARTHAK Shift Summary 10/17/21 15:24 Shift Summary by Ev Roca Pt POD #2 for right TKA revision. Pt A/O x4, but forgetful. VSS on RA. Dressing to right LE C/D/I, no new drainage noted. CMS intact. Ambulates well 1 person SBA w/ FWW for safety. Pain well controlled w/ Percocet and ice packs. PICC line in place to right upper chest from previous hospital visit for [facility] abx, SL. PIV to left hand, WNL, SL. Pt able to make needs known. Uses call light appropriately, within reach. Initialized on 10/17/21 15:24 - END OF NOTE
[2021-10-17] MEDS: SENNOSIDES 1 TABLET PO SCH (21:31)
[2021-10-17] MEDS: FUROSEMIDE 20 MG TABLET PO SCH (21:31)
[2021-10-17] MEDS: AMITRIPTYLINE 25 MG TABLET PO SCH (21:31)
[2021-10-17] MEDS: ATORVASTATIN 20 MG TABLET PO SCH (21:46)
[2021-10-18] MEDS: 0.9 % SODIUM CHLORIDE 10 ML SYRINGE IV SCH (04:47)
--- NOTE | 2021-10-18 07:37 | Orthopedic Progress Note ---
SUBJECTIVE Subjective Patient information: Note initiated : 10/18/21 at 7:34 am Service Date, if different from initiated Date: [] Patient: Terrie Mcdaniel 66 y/o F admitted on 10/15/21 for Rt Total Knee Arthroplasty Revision. Chief Complaint: [] Principal diagnosis: Right total knee arthroplasty revision Interval history: pain is controlled, wants to go home Constitutional Vitals: Vital Signs Temp Pulse Resp BP Pulse Ox 99.6 F H 82 16 93/62 97 10/18/21 04:00 10/18/21 04:00 10/18/21 04:00 10/18/21 04:00 10/18/21 04:00 Period Temp Pulse Resp BP Sys/Amaya Pulse Ox Last 24 Hr 97.1 F-99.6 F 64-82 14-20 87-113/57-70 91-100 Intake and Output 10/17/21 10/18/21 10/18/21 21:59 05:59 13:59 Intake Total 200 700 Output Total 1200 Balance 200 -500 Weight 172 lb 9 oz Intake & Output: Intake & Output 10/17/21 10/18/21 10/18/21 21:59 05:59 13:59 Intake Total 200 700 Output Total 1200 Balance 200 -500 Weight 172 lb 9 oz Intake: Oral 200 700 Output: Void Amount 1200 Other: Meal Dinner Percent of Meal Consumed 100% Urine Appearance Clear Clear Urine Color Bright Yellow Bright Yellow Stool Size Moderate Stool Color Brown Stool Consistency Formed # Voids 1 # Bowel Movements 1 General appearance: no acute distress Expanded Lower Extremity Exam Gait: Present antalgic (walking independently with walker) OBJ DATA Labs CBC & Chem 7: 10/11/21 15:02 10/11/21 15:02 Meds: Medications Al Hydrox/Mg Hydrox/Simethicone (Mag Hydrox/Al Hydrox/Simeth 30 Ml Oral.Susp) 30 ml PO Q4HP PRN PRN Reason: Dyspepsia Amitriptyline HCl (Amitriptyline 25 Mg Tablet) 50 mg PO [facility] Last Admin: 10/17/21 21:31 Dose: 50 mg Documented by: Aspirin (Aspirin 81 Mg Tab.Chew) 81 mg PO BID [facility] Last Admin: 10/17/21 21:31 Dose: 81 mg Documented by: Atorvastatin Calcium (Atorvastatin 20 Mg Tablet) 20 mg PO [facility] Last Admin: 10/17/21 21:46 Dose: 20 mg Documented by: Bisacodyl (Bisacodyl 10 Mg Supp.Rect) 10 mg LA Q2-3DAYS PRN PRN Reason: Constipation Dextrose (Dextrose 50% 50 Ml Vial) 0 ml IV UD PRN PRN Reason: Hypoglycemia Diagnostic Test (Pha) (Accu-Chek 1 Each Strip) 1 each FS TIDAC [facility] Last Admin: 10/17/21 16:32 Dose: 1 each Documented by: Docusate Sodium (Docusate Sodium 100 Mg Capsule) 100 mg PO BID [facility] Last Admin: 10/17/21 21:31 Dose: 100 mg Documented by: Furosemide (Furosemide 20 Mg Tablet) 20 mg PO HS [facility] Last Admin: 10/17/21 21:31 Dose: 20 mg Documented by: Glucose (Dextrose 31 Gm Oral.Susp) 15 gm PO PRN PRN PRN Reason: Hypoglycemia Hydromorphone HCl (Hydromorphone 1 Mg/Ml Syringe) 0.5 - 2 mg IV Q2HP PRN; Protocol PRN Reason: Per Pain Protocol Insulin Human Lispro (Insulin Lispro 1 Unit/0.01 Ml Unit) 0 unit SQ [facility]; Protocol Last Admin: 10/17/21 21:32 Dose: Not Given Documented by: Magnesium Hydroxide (Magnesium Hydroxide 30 Ml Oral.Susp) 30 ml PO BIDP PRN PRN Reason: Constipation Metformin HCl (Metformin 500 Mg Tab.Xl.24h) 1,000 mg PO BIDCC [facility] Last Admin: 10/17/21 16:36 Dose: 1,000 mg Documented by: Nadolol (Nadolol 20 Mg Tablet) 20 mg PO DAILY [facility] Last Admin: 10/17/21 08:24 Dose: 20 mg Documented by: Ondansetron HCl (Ondansetron 4 Mg/2 Ml Vial) 4 mg IV Q4HP PRN; Protocol PRN Reason: Nausea And Vomiting Oxycodone/Acetaminophen (Oxycodone/Apap 5/325mg Tablet) 1 - 2 tab PO Q4HP PRN; Protocol PRN Reason: Per Pain Protocol Last Admin: 10/17/21 21:33 Dose: 1 tab Documented by: Pantoprazole Sodium (Pantoprazole 40 Mg Tablet) 40 mg PO [facility] Last Admin: 10/17/21 07:41 Dose: 40 mg Documented by: Fiber Tablet, (Chewable) 2 dose PO DAILY [facility] Last Admin: 10/17/21 08:25 Dose: Not Given Documented by: Milk Thistle Seed Extract 1000 Mg Capsule 1 dose PO DAILY [facility] Last Admin: 10/17/21 08:25 Dose: Not Given Documented by: Polyethylene Glycol (Polyethylene Glycol 3350 17 Gm Packet) 17 gm PO DAILYP PRN PRN Reason: Constipation Last Admin: 10/17/21 08:23 Dose: 17 gm Documented by: Senna (Sennosides 1 Tablet) 2 tab PO HS [facility] Last Admin: 10/17/21 21:31 Dose: 2 tab Documented by: Sodium Biphosphate/Sodium Phosphate (Fleets Adult Enema) 1 dose LA Q3-4DAYS PRN PRN Reason: Constipation Sodium Chloride (0.9 % Sodium Chloride 10 Ml Syringe) 10 ml IV Q8 [facility] Last Admin: 10/18/21 04:47 Dose: 10 ml Documented by: Spironolactone (Spironolactone 25 Mg Tablet) 50 mg PO DAILY [facility] Last Admin: 10/17/21 08:24 Dose: 50 mg Documented by: Throat Lozenges (Benzocaine/Menthol 1 Lozenge) 1 lozenge PO PRN PRN PRN Reason: Sore Throat Venlafaxine HCl (Venlafaxine 150 Mg Cap.Xl.24h) 150 mg PO QDAY [facility] Last Admin: 10/17/21 08:23 Dose: 150 mg Documented by: Venlafaxine HCl (Venlafaxine 75 Mg Tablet) 37.5 mg PO QDAY [facility] Last Admin: 10/17/21 08:23 Dose: 37.5 mg Documented by: A/P Narrative A/P Narrative: POD#3 s/p right total knee revision reimplantation-orthopedically stable, wants to d/c home instead of a SNF -discharge home today Time Spent With Patient Time: Total time spent is greater than 50% in coordination of care (as documented) at patient's floor/unit and/or counseling patient:
[2021-10-18] MEDS: DOCUSATE SODIUM 100 MG CAPSULE PO SCH (08:10)
[2021-10-18] MEDS: NADOLOL 20 MG TABLET PO SCH (08:10)
[2021-10-18] MEDS: PANTOPRAZOLE 40 MG TABLET PO SCH (08:10)
[2021-10-18] MEDS: metFORMIN 500 MG TAB.XL.24H PO SCH (08:10)
[2021-10-18] MEDS: SPIRONOLACTONE 25 MG TABLET PO SCH (08:11)
[2021-10-18] MEDS: VENLAFAXINE 150 MG CAP.XL.24H PO SCH (08:11)
[2021-10-18] MEDS: ASPIRIN 81 MG TAB.CHEW PO SCH (08:11)
[2021-10-18] MEDS: VENLAFAXINE 75 MG TABLET PO SCH (08:11)
[2021-10-18] MEDS: MILK THISTLE SEED EXTRACT PO SCH (09:17)
[2021-10-18] MEDS: FIBER PO SCH (09:17)
[2021-10-18] MEDS: INSULIN LISPRO 1 UNIT/0.01 ML UNIT SQ SCH (09:17)
== END 2021-10-18 11:45 | DRG 468 ==
LOC: SUR 07:01 → MEDSUR 11:59
PROVIDERS: ADMIT Orthopaedic Surgery; ATTEND Orthopaedic Surgery